=== PATIENT | female | born 1950 | race Caucasian/White ===

== ENCOUNTER → 2016-08-27 | Day surgery (SDC) | payer MEDICARE, OTHER ==
[~2016-08-27] VITALS: Ht 152.4 cm; Wt 81.6 kg
[~2016-08-27] MED LIST: ASPIR 8181 MG PO; CALCIUM 500 +1 EAC3 PO; GARLIC400 MG PO; LEVOTHYROXINE75 MCG PO; LIPITOR TAB 1010 MG PO; MELOXICAM15 MG PO; MULTI-DAY VITA1 EACH PO; OMEPRAZOLE20 M1 PO; TOPROL XL 25 MG25 MG PO; VITAMIN D50000 UNIT PO
== END | disposition home or self-care (01) ==
LOC: OR 07:09
PROVIDERS: Surgery
PROC: 0DJD8ZZ Inspection of Lower Intestinal Tract, Via Natural or Artificial Opening Endoscopic (ICD-10-PCS; principal; 2016-08-27 08:00)
DX: Z12.11 Encounter for screening for malignant neoplasm of colon (principal); I10 Essential (primary) hypertension; G47.30 Sleep apnea, unspecified; Z99.89 Dependence on other enabling machines and devices; Z82.49 Family history of ischemic heart disease and other diseases of the circulatory system; Z98.51 Tubal ligation status; Z98.890 Other specified postprocedural states; Z79.82 Long term (current) use of aspirin; Z79.899 Other long term (current) drug therapy
CPT/HCPCS: J7030

== ENCOUNTER → 2020-05-16 | Outpatient (CLI) | payer MEDICARE, OTHER ==
[~2020-05-16] MED LIST changes: +CELEBREX 200MG200 MG PO; +LOPRESSOR 25 MG25 MG PO; +METFORMIN HCL500 MG PO; +MULTIVITAMINS1 EAC1 PO; +PERCOCET 5-3251 EACH PO; +PRINIVIL5 MG PO; +TRAVATAN Z5 ML EYEBOTH; +VITAMIN D PO
== END ==
LOC: KOH-I 12:48
DX: M51.36 Other intervertebral disc degeneration, lumbar region (principal)
CPT/HCPCS: 72100

== ENCOUNTER → 2020-05-30 | Outpatient (CLI) | payer MEDICARE, OTHER | LOC: EMI 08:00 → KOH-I 10:30 | DX: M51.16 Intervertebral disc disorders with radiculopathy, lumbar region (principal); M41.86 Other forms of scoliosis, lumbar region | CPT/HCPCS: 72148 ==

== ENCOUNTER → 2020-10-17 | Outpatient (CLI) | payer MEDICARE, OTHER | LOC: KOH-I 09:03 | DX: M46.1 Sacroiliitis, not elsewhere classified (principal); M53.3 Sacrococcygeal disorders, not elsewhere classified | CPT/HCPCS: 72202 ==

== ENCOUNTER → 2021-03-06 | Outpatient (CLI) | payer MEDICARE, OTHER | LOC: KOH-I 15:27 → US 15:30 → KOH-I 15:30 | DX: M79.604 Pain in right leg (principal); R60.9 Edema, unspecified | CPT/HCPCS: 93971 ==

== ENCOUNTER → 2021-03-23 | Outpatient (CLI) | payer MEDICARE, OTHER | LOC: EMI 16:00 | DX: R22.42 Localized swelling, mass and lump, left lower limb (principal) | CPT/HCPCS: 73718 ==

== ENCOUNTER → 2021-06-15 | Day surgery (SDC) | payer MEDICARE, OTHER ==
[~2021-06-15] MED LIST changes: +HALOBETASOL TOP; +HYDROCODON-ACE1 EAC4 PO; +LATANOPROST 0.7.5 ML EYEBOTH; +LEVOTHYROXINE100 MC2 PO
[2021-06-15 07:22] LABS: BUN/CREATININE RATIO 21 (0-10)
== END | disposition home or self-care (01) ==
LOC: OR 06:22
PROVIDERS: Surgery
DX: D17.23 Benign lipomatous neoplasm of skin and subcutaneous tissue of right leg (principal); D17.24 Benign lipomatous neoplasm of skin and subcutaneous tissue of left leg; M79.89 Other specified soft tissue disorders; I10 Essential (primary) hypertension; E11.9 Type 2 diabetes mellitus without complications; M15.8 Other polyosteoarthritis; E78.5 Hyperlipidemia, unspecified; E03.9 Hypothyroidism, unspecified; Z79.82 Long term (current) use of aspirin; Z96.659 Presence of unspecified artificial knee joint
CPT/HCPCS: 36415; 80048; 82962; J0690; J1100; J2001; J2405; J2704; J3010; J7120

== ENCOUNTER → 2021-09-18 | Outpatient (CLI) | payer MEDICARE, OTHER | LOC: KOH-I 12:23 | DX: M25.511 Pain in right shoulder (principal); S22.41XA Multiple fractures of ribs, right side, initial encounter for closed fracture; W19.XXXA Unspecified fall, initial encounter; M19.011 Primary osteoarthritis, right shoulder | CPT/HCPCS: 71101; 73030 ==

== ENCOUNTER → 2021-11-27 | Outpatient (CLI) | payer MEDICARE, OTHER | LOC: KOH-I 14:26 | DX: M25.539 Pain in unspecified wrist (principal) | CPT/HCPCS: 73110; 73630 ==

== ENCOUNTER → 2021-12-11 | Outpatient (CLI) | payer MEDICARE, OTHER | LOC: MRI 09:55 | DX: R51.9 Headache, unspecified (principal); R20.2 Paresthesia of skin; H93.19 Tinnitus, unspecified ear | CPT/HCPCS: 70553; 82565; 84520; A9577 ==

== ENCOUNTER → 2022-01-08 | Outpatient (CLI) | payer MEDICARE, OTHER | LOC: KOH-I 12-25 10:30 | DX: M25.532 Pain in left wrist (principal); M79.646 Pain in unspecified finger(s); R93.89 Abnormal findings on diagnostic imaging of other specified body structures; M18.12 Unilateral primary osteoarthritis of first carpometacarpal joint, left hand | CPT/HCPCS: 73221 ==